=== PATIENT | female | born 1945 | race Hispanic/Latino ===

== ENCOUNTER → 2018-06-29 | Outpatient (CLI) | payer OTHER, MEDICARE ==
[~2018-06-29] MED LIST: AMLO1CAP11 PO; PANT40TA25 PO; [UNRECOGNIZED DRUG - OTHER] TP; [UNRECOGNIZED DRUG - OTHER] TP
== END | disposition home or self-care (01) ==
LOC: RAH 07:57
PROVIDERS: ATTEND Internal Medicine Gastroenterology
DX: N27.1 Small kidney, bilateral (principal); K76.89 Other specified diseases of liver
CPT/HCPCS: 76700